=== PATIENT | male | born 1975 | race Caucasian/White ===

== ENCOUNTER 2016-06-12 18:18 | Emergency (ER) | payer SELFPAY ==
[2016-06-12] MEDS ORDERED: Acetaminophen-Codeine 300-30mg TAB PO STA (19:56)
[2016-06-12] MEDS ORDERED: ACETAMINOPHEN TAB 325 MG TAB PO STA (19:56)
[2016-06-12] MEDS ORDERED: AZITHROMYCIN 500 MG TAB PO STA (19:56)
[2016-06-12] MEDS ORDERED: IPRATROPIUM-ALBUTEROL 3 ML NEB INHALATION STA (19:56)
[2016-06-12] MEDS ORDERED: IBUPROFEN 800 MG TAB PO STA (19:56)
--- NOTE | 2016-06-12 20:09 | XR ---
EXAMINATION TYPE: XR chest 2V DATE OF EXAM: 06/12/2016 8:03 PM COMPARISON: NONE HISTORY: Cough and congestion TECHNIQUE: Frontal and lateral views of the chest are obtained. FINDINGS: Heart and mediastinum are normal. Lungs are clear. Diaphragm is normal. Bony thorax is int act. IMPRESSION: Normal chest
[2016-06-12 20:18] VITALS: BP 117/74; RESP 18; TEMP 99.1
--- NOTE | 2016-06-12 20:22 | ED ---
General Adult HPI - General Chief complaint: Fever Stated complaint: Sob Time Seen by Provider: 06/12/16 19:42 Source: patient, RN notes reviewed, old records reviewed Mode of arrival: ambulatory Limitations: no limitations - History of Present Illness Initial comments: This is a 40-year-old male here for evaluation of cough congestion mild soreness of breath fever bodyaches and chills. Patient has no medical history aside from smoking. Patient states he was having an argument last night but otherwise felt fine. Later the night he did begin this fever and chills, sweating. No significant shortness of breath. Patient does admit to body aches and pains. Again no recent travel history recent hospitalizations. - Related Data Home Medications Medication Instructions Recorded Confirmed Ibuprofen [Motrin] 600 mg PO Q6HR PRN 06/12/16 06/12/16 Allergies Allergy/AdvReac Type Severity Reaction Status Date / Time No Known Allergies Allergy Verified 06/12/16 20:00 Review of Systems ROS Statement: Those systems with pertinent positive or pertinent negative responses have been documented in the HPI. ROS Other: All systems not noted in ROS Statement are negative. Past Medical History Past Medical History: Cancer Additional Past Medical History / Comment(s): testicular cancer History of Any Multi-Drug Resistant Organisms: None Reported Additional Past Surgical History / Comment(s): testicle removed, polyps removed. Past Psychological History: No Psychological Hx Reported Smoking Status: Current every day smoker Past Alcohol Use History: None Reported Past Drug Use History: None Reported General Exam Limitations: no limitations General appearance: alert, in no apparent distress, anxious Head exam: Present: atraumatic, normocephalic, normal inspection Eye exam: Present: normal appearance, PERRL, EOMI. Absent: scleral icterus, conjunctival injection, periorbital swelling ENT exam: Present: normal exam, mucous membranes dry Neck exam: Present: normal inspection. Absent: tenderness, meningismus, lymphadenopathy Respiratory exam: Present: normal lung sounds bilaterally, wheezes. Absent: respiratory distress, rales, rhonchi, stridor, accessory muscle use, decreased breath sounds Cardiovascular Exam: Present: normal rhythm, tachycardia, normal heart sounds. Absent: systolic murmur, diastolic murmur, rubs, gallop, clicks GI/Abdominal exam: Present: soft, normal bowel sounds. Absent: distended, tenderness, guarding, rebound, rigid Extremities exam: Present: normal inspection, full ROM, normal capillary refill. Absent: tenderness, pedal edema, joint swelling, calf tenderness Back exam: Present: normal inspection Neurological exam: Present: alert, oriented X3, CN II-XII intact Psychiatric exam: Present: normal affect, normal mood Skin exam: Present: warm, dry, intact, normal color. Absent: rash Course Vital Signs 06/12/16 06/12/16 06/12/16 18:34 20:15 20:16 Temperature 100.4 F H 99.1 F Pulse Rate 107 H 106 H 82 Respiratory 20 18 Rate Blood Pressure 111/65 117/74 O2 Sat by Pulse 98 96 Oximetry - Reevaluation(s) Reevaluation #1: 06/12/16 20:20 Patient is showing signs of bronchitis, patient improved with breathing treatment, no respiratory distress no chest pain Reevaluation #2: 06/12/16 20:21 Patient also experiencing bodyaches date chills and fever. Symptoms of influenza Medical Decision Making - Medical Decision Making 40 male with signs and symptoms of acute bronchitis from smoking, kbyte influenza. Patient will be given fever control. Treatments and to be discharged home - Radiology Data Radiology results: report reviewed (Chest x-ray is negative for pneumonia), image reviewed Disposition Clinical Impression: Influenza, Acute bronchitis Disposition: HOME SELF-CARE Condition: Good Instructions: Fever in Adults (ED), Acute Bronchitis (ED), Influenza (ED) Referrals: None,Stated [Primary Care Provider] - 1-2 days
[2016-06-12] MEDS ORDERED: DEXAMETHASONE SOD PHOSPHATE 10 MG/ML 1 ML VIAL IM STA (20:24)
[2016-06-12 20:25] VITALS: PULSE 106
== END 2016-06-12 20:43 | disposition home or self-care (01) ==
LOC: EC 18:18
DX: J10.1 Influenza due to other identified influenza virus with other respiratory manifestations (principal); J20.9 Acute bronchitis, unspecified; F17.200 Nicotine dependence, unspecified, uncomplicated
CPT/HCPCS: 94640; 71020; 99283; 96372; J1100

== ENCOUNTER 2017-09-21 22:22 | Emergency (ER) | payer OTHER ==
[2017-09-21] MEDS ORDERED: LIDOCAINE 1% INJ 10MG/ML (20 ML MDV) SQ STA (22:43)
--- NOTE | 2017-09-21 23:16 | ED ---
Skin/Abscess/FB HPI - General Chief complaint: Skin/Abscess/Foreign Body Stated complaint: Left Wrist Laceration Time Seen by Provider: 09/21/17 22:34 Source: patient, RN notes reviewed Mode of arrival: ambulatory Limitations: no limitations - History of Present Illness Initial comments: This is a 42-year-old male who presents to the emergency department with chief complaint of left wrist laceration. Patient states approximately a half an hour ago he was making a hamburger while at work. He states that he was trying to flatten the burger between 2 pieces of wax paper with a plate. He states that when he pushed down on the plate it broke and lacerated his left wrist. He states he is up-to-date with his tetanus vaccination. Denies any other injuries or trauma. States he does have normal range of motion of the left hand and wrist. Denies fevers or chills, chest pain shortness of breath, abdominal pain, nausea or vomiting. - Related Data Home Medications Medication Instructions Recorded Confirmed No Known Home Medications [No 09/21/17 09/21/17 Known Home Medications] Allergies Allergy/AdvReac Type Severity Reaction Status Date / Time No Known Allergies Allergy Verified 09/21/17 22:34 Review of Systems ROS Statement: Those systems with pertinent positive or pertinent negative responses have been documented in the HPI. ROS Other: All systems not noted in ROS Statement are negative. Past Medical History Past Medical History: Cancer Additional Past Medical History / Comment(s): testicular cancer History of Any Multi-Drug Resistant Organisms: None Reported Additional Past Surgical History / Comment(s): testicle removed, polyps removed. Past Psychological History: No Psychological Hx Reported Smoking Status: Current every day smoker Past Alcohol Use History: None Reported Past Drug Use History: None Reported General Exam - General Exam Comments Initial Comments: General: Awake and alert, well-developed; in no apparent distress. HEENT: Head atraumatic, normocephalic. Pupils are equal, round and reactive to light. Extraocular movements intact. Oropharynx moist without erythema or exudate. Neck: Supple. Normal ROM. Cardiovascular: Regular rate and rhythm. No murmurs, rubs or gallops. Chest symmetrical. Respiratory: Lungs clear to auscultation bilaterally. No wheezes, rales or rhonchi. Normal respiratory effort with no use of accessory muscles. Musculoskeletal: Normal range motion of the right wrist. There is an approximately flap-like irregularly-shaped laceration to the ventral left wrist that is approximately 6 cm in length. There is active bleeding. Sensation is intact. Radial pulses are 2+ equal and palpable bilaterally. Skin: [place], warm and dry without rashes. Neurological: Alert and oriented x3. CN II-XII grossly intact. Speech is fluent and answers are appropriate. No focal neuro deficits. Psychiatric: Normal mood and affect. No overt signs of depression or anxiety noted. Limitations: no limitations Course Vital Signs 09/21/17 22:32 Temperature 98.6 F Pulse Rate 122 H Respiratory 18 Rate Blood Pressure 144/64 O2 Sat by Pulse 97 Oximetry Procedures - Laceration Laceration #1 Consent Obtained: verbal consent Indication: laceration Site: upper extremity (ventral left wrist) Size (cm): 6 Description: flap, irregular Depth: simple, single layer Anesthetic Used: lidocaine 1% Anesthesia Technique: local infiltration Amount (mls): 3 Pre-repair: wound explored, irrigated extensively, deep structures intact Type of Sutures: nylon Size of Sutures: 4-0 Number of Sutures: 9 Technique: simple, interrupted Patient Tolerated Procedure: well, no complications Medical Decision Making - Medical Decision Making This is a 42-year-old male who presented to the emergency department with chief complaint of left wrist laceration. Patient does have normal range of motion and is neurovascularly intact. He did sustain a flap-like laceration to the ventral surface of the left wrist. 9 sutures were placed and patient tolerated well without complication. X-ray revealed no acute abnormalities. No evidence for radiopaque foreign body. Patient states he is up-to-date with his tetanus vaccination. Recommended removal of sutures in 10-14 days. On wound exploration, a flexor tendon was slightly visualized. This did not appear to have any damage to it. Patient has normal strength distal to the laceration. Patient will be given referral to orthopedics. He is in agreement with plan and voices understanding. He will be discharged home at this time. All questions answered. - Radiology Data Radiology results: report reviewed, image reviewed X-ray left wrist impression: Negative left wrist exam. No sign of radiopaque foreign body. Disposition Clinical Impression: Laceration of left wrist Disposition: HOME SELF-CARE Condition: Good Instructions: Laceration (ED) Additional Instructions: Please have sutures removed in 10-14 days. Please follow-up with Dr. Pena, orthopedics within 1-2 days. Please keep wound clean and dry and covered while working. Please follow up with primary care provider within 1-2 days. Return to emergency department if symptoms should worsen or any concerns arise. Is patient prescribed a controlled substance at d/c from ED?: No Referrals: None,Stated [Primary Care Provider] - 1-2 days Mk Pena MD [STAFF PHYSICIAN] - 1-2 days Time of Disposition: 23:33
--- NOTE | 2017-09-21 23:27 | XR ---
EXAMINATION TYPE: XR wrist limited LT DATE OF EXAM: 09/21/2017 COMPARISON: NONE HISTORY: Wrist laceration. TECHNIQUE: 2 views FINDINGS: I see no fracture nor dislocation. There is no sign of radiopaque foreign body. Joint space s are fairly normal. IMPRESSION: Negative left wrist exam.
[2017-09-21 23:38] VITALS: BP 139/89; PULSE 99; RESP 20; TEMP 98
== END 2017-09-21 23:39 | disposition home or self-care (01) ==
LOC: EC 22:22
DX: S61.512A Laceration without foreign body of left wrist, initial encounter (principal); F17.200 Nicotine dependence, unspecified, uncomplicated; Z85.47 Personal history of malignant neoplasm of testis; W26.8XXA Contact with other sharp object(s), not elsewhere classified, initial encounter; Y93.G3 Activity, cooking and baking; Y92.69 Other specified industrial and construction area as the place of occurrence of the external cause; Y99.0 Civilian activity done for income or pay
CPT/HCPCS: 99283; 12002; 73100; J2001